=== PATIENT | male | born 1945 | race Hispanic/Latino ===

== ENCOUNTER → 2018-01-05 | Day surgery (SDC) | payer MEDICARE, OTHER ==
[2018-01-03 12:23] LABS: BASOPHILS % 0.3 % (0.0-1.0); EOSINOPHILS # (AUTO) 0.1 (0.0-0.4); EOSINOPHILS % 1.7 % (0.0-6.0); HEMATOCRIT 42.5 % (38.2-49.6); HEMOGLOBIN 14.4 g/dL (14.0-18.0); LYMPHOCYTES # (AUTO) 1.4 (1.0-3.2); LYMPHOCYTES % 23.1 % (18.0-39.1); MEAN CORPUSCULAR HEMOGLOBIN 30.3 pg (28-32); MEAN CORPUSCULAR HGB CONC 33.9 g/dL (31-35); MEAN CORPUSCULAR VOLUME 89.5 fL (81-99); MONOCYTES # (AUTO) 0.5 (0.2-0.8); MONOCYTES % 8.6 % (4.4-11.3); NEUTROPHILS % 65.6 % (38.7-80.0); PLATELET COUNT 265 x10e3/uL (140-360); RED BLOOD COUNT 4.75 x10e6/uL (4.3-5.7); RED CELL DISTRIBUTION WIDTH 12.7 % (11.7-14.4)
[2018-01-03 12:44] LABS: ANION GAP 13.3 mmol/L (8-16); BLOOD UREA NITROGEN 13 mg/dL (7-26); BUN/CREATININE RATIO 16 (6-25); CALCIUM 9.6 mg/dL (8.4-10.2); CARBON DIOXIDE 24 mmol/L (22-29); CHLORIDE 107 mmol/L (98-107); CREATININE, SERUM 0.81 mg/dL (0.72-1.25); EST GLOMERULAR FILTRATION RATE > 60 ML/MIN (60-); GLUCOSE 146 mg/dL (74-118); POTASSIUM 4.3 mmol/L (3.5-5.1); SODIUM 140 mmol/L (136-145)
--- NOTE | 2018-01-03 12:59 | Diagnostic Imaging Report ---
PROCEDURE:CHEST 2 VIEWS TECHNIQUE:PA and lateral chest INDICATION:Preoperative evaluation COMPARISON:None. FINDINGS: The lungs are clear and symmetrically inflated. No pleural effusions. Normal heart size, mediastinal contour and pulmonary vasculature. Postoperative sequela sternotomy/CABG. Intact skeleton. CONCLUSION: No acute abnormality. Dictated by: Jimmy Hdez M.D. on 01/03/2018 at 13:01 Electronically approved by: Jimmy Hdez M.D. on 01/03/2018 at 13:01
[~2018-01-05] MED LIST: AMLODIPINE BESY10 MG PO; ASPIRIN81 MG; ATORVASTATIN CA20 MG PO; CARVEDILOL3.125 MG PO; CEFTRIAXONE SOD 1 GM VIAL ONE; CINNAMON500 MG; EFFIENT10 MG PO; FENTANYL CITRATE/PF 100MCG/2 ML INJ ONE; HUMULIN R100 UNIT/2; JANUMET 50-1,01 EACH; KETOROLAC60 MG/2 ML OP; LIDOCAINE JELLY 2% 10ML URO-JET ONE; LOSARTAN POTASS25 MG; MIDAZOLAM HCL 2 MG/2 ML VIAL ONE; NITROGLYCERIN0.4 MG SL; ONDANSETRON HCL INJ 2 MG/ML VIAL ONE; PROPOFOL IV EMULSION 10 MG/ML 20 ML VIAL ONE; RANEXA500 MG PO; SERTRALINE HCL50 MG PO; VITAMIN D250000 UNIT
--- OUTSIDE RECORDS SUMMARY | 2018-01-05 07:27 | XMS REPORT ---
Author [facility] Address Unknown Phone Unavailable Care Team Providers Care Senior It Specialist Name Role Phone EL PHAN Unavailable Unavailable Problems This patient has no known problems. Allergies, Adverse Reactions, Alerts This patient has no known allergies or adverse reactions. Medications This patient has no known medications. Results Test Description Test Time Test Comments Text Results Atomic Results Result Comments CHEST 2 VIEWS [place] [address] Patient Name: JOSE JAVIER MR #: [id number] : 1945 Age/Sex: 72/M Req # : [id number] Adm Physician: Ordered by: KOURTNEY LOWERY MD Report #: [id number] Location: OR Room/Bed: Procedure: [id number] DX/CHEST 2 VIEWS Exam Date: 01/03/18 Exam Time: 1230 REPORT STATUS: Signed PROCEDURE: CHEST 2 VIEWS TECHNIQUE: PA and lateral chest INDICATION: Preoperative evaluation COMPARISON: None. FINDINGS: The lungs are clear and symmetrically inflated. No pleural effusions. Normal heart size, mediastinal contour and pulmonary vasculature. Postoperative sequela sternotomy/CABG. Intact skeleton. CONCLUSION: No acute abnormality. Dictated by: Lorena Hdez M.D. on 01/03/2018 at 13:01 Electronically approved by: Lorena Hdez M.D. on 01/03/2018 at 13:01 Dictated By: LORENA HDEZ MD [id number] Transcribed By: SYDNEE on 01/03/18 1301 COPY TO: KOURTNEY LOWERY MD
--- OUTSIDE RECORDS SUMMARY | 2018-01-05 07:27 | XMS REPORT ---
Author Author Admin, [place] Organization [facility] Address Unknown Phone Unavailable Allergies, Adverse Reactions, Alerts Allergy Name Reaction Description Start Date Severity Status Provider Allergies Unknown Conditions or Problems Problem Name Problem Code Onset Date Status Entry Date Provider Comment Standard Description Annotate Depression, major 296.20 Active Selena NUNEZP Major depressive disorder, single episode, unspecified degree Diabetes mellitus, type II 250.00 Active Selena NUNEZP Diabetes mellitus without mention of complication, type II or unspecified type, not stated as uncontrolled Dyslipidemia 272.4 Active Selena NUNEZP Other and unspecified hyperlipidemia Hypertension, benign essential 401.1 Active Selena NUNEZP Benign essential hypertension Insomnia 780.52 Active Selena NUNEZP Insomnia, unspecified Obesity Active Selena NUNEZP Obesity, unspecified Physical exam, routine V70.0 Inactive Selena MALDONADO Routine general medical examination at a health care facility Physical exam, routine ICD-V70.0 Inactive Selena NUNEZP Medication List Medication Instructions Start Date Stop Date Generic Name NDC Status Provider Patient Instruction ONETOUCH LANCETS check twice daily LANCETS 55452424296 Active Selena NUNEZP Active ONETOUCH ULTRA BLUE IN VITRO STRIP Use to test blood sugars Twice a Day 12/15 GLUCOSE BLOOD 26870496698 Active Katerina Landry PROMOS EXECUTIVE PRODUCER Active AMLODIPINE BESYLATE 10 MG ORAL TABLET 1 tab by mouth daily AMLODIPINE BESYLATE 92557038090 Active Selena NUNEZP Active ASPIRIN 81 MG ORAL TABLET DELAYED RELEASE 1 by mouth every day ASPIRIN 07219537494 Active Selena NUNEZP Active ATORVASTATIN CALCIUM 40 MG ORAL TABLET 1 tablet by mouth at bedtime ATORVASTATIN CALCIUM 02101609863 Active Selena NUNEZP Active CARVEDILOL 6.25 MG ORAL TABLET 1 tab by mouth once a day CARVEDILOL 57777429944 Active Selena NUNEZP Active CINNAMON 500 MG ORAL CAPSULE 2 tablets by mouth twice daily CINNAMON 93765123618 Active Selena NUNEZP Active [facility] MELATONIN 10 MG ORAL CAPSULE 3 tablets by mouth at bedtime MELATONIN 17103214741 Active Selena NUNEZP Active HUMULIN R 100 UNIT/ML INJECTION SOLUTION 3 units SC as needed INSULIN REGULAR HUMAN 82287885426 Active Selena NUNEZP Active JANUMET 50-1000 MG ORAL TABLET 1 tablet by mouth twice daily SITAGLIPTIN-METFORMIN HCL 24852645137 Active Selena NUNEZP Active LOSARTAN POTASSIUM 25 MG ORAL TABLET 1 tablet by mouth daily LOSARTAN POTASSIUM 93632858896 Active Selena NUNEZP Active NITROSTAT 0.4 MG SUBLINGUAL TABLET SUBLINGUAL 1 SL every 5 min as needed for chest pain, max 3 doses per episode NITROGLYCERIN 95706081323 Active Selena NUNEZP Active PRASUGREL HCL 10 MG ORAL TABLET 1 tablet by mouth daily PRASUGREL HCL 79066483959 Active Selena NUNEZP Active RANEXA 1000 MG ORAL TABLET EXTENDED RELEASE 12 HOUR 1 tablet by mouth twice daily RANOLAZINE 27707132173 Active Selena NUNEZP Active SERTRALINE HCL 50 MG ORAL TABLET 1/2 tablet by mouth at bedtime daily SERTRALINE HCL 51995328524 Active Selena NUNEZP Active VITAMIN D (ERGOCALCIFEROL) 83804 UNIT ORAL CAPSULE One capsule by mouth once per week for 12 weeks ERGOCALCIFEROL 32940502025 Active Selena NUNEZP Active Vital Signs Date Name Value Unit Range Description blood pressure, diastolic 93 mm[Hg] BP aguiar blood pressure, systolic 156 mm[Hg] BP sys height E&M 63.50 [in_us] Bdy height pulse rate E&M 58 /min Heart rate respiratory rate E&M 21 /min Resp rate temperature E&M 98.5 [degF] Body temperature weight E&M 181.80 [lb_av] Weight Measured Diagnostic Results Date Name Value Unit Range Description Office Visit: Acute Visit uti/htn/diabetes rm 6 [facility]e - Urinalysis pH, urine, semiquantitative 5.0 Lab Report: CBC With Differential/Platelet, Comp. Metabolic Panel (14), ... - Hematology lymphocyte count, blood, automated 1.5 X10E3/UL 10*3/mm3 0.7- 3.1 Office Visit: Acute Visit uti/htn/diabetes rm 6 [facility] Jaye - Urinalysis bilirubin, urine negative Lab Report: CBC With Differential/Platelet, Comp. Metabolic Panel (14), ... - Chemistry urea nitrogen, blood 11 mg/dL 8-27 creatinine, serum 0.86 mg/dL 0.76-1.27 chloride, serum 102 mmol/L 96-106 Lab Report: CBC With Differential/Platelet, Comp. Metabolic Panel (14), ... - Hematology mean corpuscular volume, RBC 92 fL 79-97 Lab Report: CBC With Differential/Platelet, Comp. Metabolic Panel (14), ... - Chemistry triglyceride, serum, fasting 123 mg/dL 0-149 Lab Report: CBC With Differential/Platelet, Comp. Metabolic Panel (14), ... - Hematology erythrocyte (RBC) count 4.56 X10E6/UL 10*6/mm3 4.14-5.80 Lab Report: CBC With Differential/Platelet, Comp. Metabolic Panel (14), ... - Chemistry Estimated Glomerular Filtration Rate (calc) 87 mL/min/1.73m2 > 59 Office Visit: Acute Visit uti/htn/diabetes rm 6 [facility] Jaye - Urinalysis appearance, urine clear Lab Report: CBC With Differential/Platelet, Comp. Metabolic Panel (14), ... - Hematology platelet count 262 X10E3/UL 10*3/mm3 077-533 7699/05/10 red blood cell distribution width 14.2 % 12.3-15.4 Lab Report: CBC With Differential/Platelet, Comp. Metabolic Panel (14), ... - Chemistry protein, total, serum 7.1 g/dL 6.0-8.5 HDL cholesterol, serum 37 mg/dL >39 Office Visit: Acute Visit uti/htn/diabetes rm 6 [facility] Jaye - Urinalysis glucose, urine, semiquantitative negative Lab Report: CBC With Differential/Platelet, Comp. Metabolic Panel (14), ... - Chemistry albumin/globulin ratio, serum 2.0 1.2-2.2 Lab Report: CBC With Differential/Platelet, Comp. Metabolic Panel (14), ... - Hematology eosinophils as percent of blood leukocytes 1 % Not Estab. Lab Report: CBC With Differential/Platelet, Comp. Metabolic Panel (14), ... - Chemistry Absolute Neutrophils 3.9 X10E3/UL 10*3/uL 1.4-7.0 Lab Report: CBC With Differential/Platelet, Comp. Metabolic Panel (14), ... - Hematology basophil count, absolute 0.0 x10E3/uL 0.0-0.2 Lab Report: CBC With Differential/Platelet, Comp. Metabolic Panel (14), ... - Chemistry alanine aminotransferase (SGPT), serum 16 U/L 0-44 LDL cholesterol, serum 74 mg/dL 0-99 Office Visit: Acute Visit uti/htn/diabetes 6 [facility]e - Urinalysis nitrite, urine, semiquantitative negative Lab Report: CBC With Differential/Platelet, Comp. Metabolic Panel (14), ... - Hematology monocytes as percent of blood leukocytes 8 % Not Estab. Lab Report: Albumin/Creatinine Ratio,Urine, Chlamydia/GC Amplification, ... - Urinalysis urine culture LESS Lab Report: CBC With Differential/Platelet, Comp. Metabolic Panel (14), ... - Chemistry cholesterol, serum 136 mg/dL 100-199 Lab Report: CBC With Differential/Platelet, Comp. Metabolic Panel (14), ... - Hematology mean corpuscular hemoglobin concentration, RBC 34.0 G/DL % 31.5- 35.7 Office Visit: Acute Visit uti/htn/diabetes 6 [facility] - Urinalysis leukocyte esterase, urine, by dipstick negative Lab Report: CBC With Differential/Platelet, Comp. Metabolic Panel (14), ... - Hematology hemoglobin, blood 14.3 g/dL 13.0-17.7 leukocyte count, blood 6.0 X10E3/UL 10*3/mm3 3.4-10.8 Office Visit: Acute Visit uti/htn/diabetes 6 [facility] - Urinalysis protein, urine, semiquantitative (dipstick) negative Lab Report: CBC With Differential/Platelet, Comp. Metabolic Panel (14), ... - Hematology hematocrit, blood 42.1 % 37.5-51.0 Lab Report: CBC With Differential/Platelet, Comp. Metabolic Panel (14), ... - Chemistry prostate specific antigen 2.6 ng/mL 0.0-4.0 globulin, serum 2.4 1.5-4.5 albumin, serum 4.7 g/dL 3.5-4.8 very low density lipoproteins 25 mg/dL 5-40 Office Visit: Acute Visit uti/htn/diabetes 6 [facility] - Urinalysis urobilinogen, urine, semiquantitative (dipstick) negative Lab Report: CBC With Differential/Platelet, Comp. Metabolic Panel (14), ... - Chemistry calcium, serum 9.6 mg/dL 8.6-10.2 Lab Report: CBC With Differential/Platelet, Comp. Metabolic Panel (14), ... - Hematology basophils as percent of blood leukocytes 0 % Not Estab. Lab Report: Albumin/Creatinine Ratio,Urine, Chlamydia/GC Amplification, ... - Urinalysis microalbumin/total urine volume 3.1 mg/L Not Estab. Lab Report: CBC With Differential/Platelet, Comp. Metabolic Panel (14), ... - Hematology monocyte count, blood, automated 0.5 X10E3/UL 10*3/uL 0.1-0.9 Lab Report: CBC With Differential/Platelet, Comp. Metabolic Panel (14), ... - Chemistry immature granulocytes, percentage of total cells, blood 0 % Not Estab. urea nitrogen/creatinine ratio, serum 13 10-24 Lab Report: CBC With Differential/Platelet, Comp. Metabolic Panel (14), ... - Genetics/fertility eGFR if 100 mL/min/1.73m2 >59 Lab Report: CBC With Differential/Platelet, Comp. Metabolic Panel (14), ... - Hematology lymphocytes as percent of blood leukocytes 25 % Not Estab. Lab Report: CBC With Differential/Platelet, Comp. Metabolic Panel (14), ... - Chemistry carbon dioxide, venous blood 24 mmol/L 18-29 Lab Report: CBC With Differential/Platelet, Comp. Metabolic Panel (14), ... - Serology rapid plasma reagin antibody, serum Non Reactive Non Reactive Lab Report: Albumin/Creatinine Ratio,Urine, Chlamydia/GC Amplification, ... - Lab chlamydia DNA probe Negative Negative Lab Report: Albumin/Creatinine Ratio,Urine, Chlamydia/GC Amplification, ... - Microbiology Neisseria gonorrhoeae DNA probe Negative Negative Lab Report: CBC With Differential/Platelet, Comp. Metabolic Panel (14), ... - Chemistry sodium, serum 141 mmol/L 435-495 8872/05/10 hemoglobin A1C, blood, as % of total hemoglobin 6.9 % 4.8-5.6 alkaline phosphatase, serum 76 U/L 39-117 Office Visit: Acute Visit uti/htn/diabetes rm 6 [facility]e - Urinalysis ketones, urine, by test strip negative Lab Report: CBC With Differential/Platelet, Comp. Metabolic Panel (14), ... - Hematology Eosinophil Absolute Count 0.1 X10E3/UL 10*3/uL 0.0-0.4 Office Visit: Acute Visit uti/htn/diabetes rm 6 [facility] - Urinalysis specific gravity, urine 1.015 Lab Report: CBC With Differential/Platelet, Comp. Metabolic Panel (14), ... - Hematology mean corpuscular hemoglobin, RBC 31.4 pg 26.6-33.0 Lab Report: CBC With Differential/Platelet, Comp. Metabolic Panel (14), ... - Chemistry bilirubin, serum, total 1.0 mg/dL 0.0-1.2 Lab Report: Albumin/Creatinine Ratio,Urine, Chlamydia/GC Amplification, ... - Chemistry creatinine, random, urine 75.0 mg/dL Not Estab. Lab Report: CBC With Differential/Platelet, Comp. Metabolic Panel (14), ... - Hematology neutrophils as percent of blood leukocytes 66 % Not Estab. Office Visit: Acute Visit uti/htn/diabetes rm 6 ERICA Cee - Urinalysis blood in urine (hemoglobin) by dipstick negative Lab Report: CBC With Differential/Platelet, Comp. Metabolic Panel (14), ... - Chemistry blood glucose, random 153 mg/dL 65-99 potassium, serum 4.5 mmol/L 3.5-5.2 aspartate aminotransferase (SGOT), serum 12 U/L 0-40 Office Visit: Acute Visit uti/htn/diabetes rm 6 ERICA Cee - Urinalysis urine color yellow Encounters Date Encounter Provider Code Facility 14:47:51 CDT New Patient Detailed - [id number] Selena Cee [facility] CPT- 89573 [facility] Procedures Code Procedure Name Date Entry Date Standard Description CPT-99874 Urinalysis - Dip only - In House 14:47:54 CDT
--- NOTE | 2018-01-12 10:56 | Operative Report ---
DATE OF PROCEDURE: January 05, 2018 PREOPERATIVE DIAGNOSIS: Bladder pain. POSTOPERATIVE DIAGNOSES 1. Bladder pain. 2. Urethral stricture disease. OPERATIVE PROCEDURES PERFORMED 1. Cystoscopy. 2. Direct visual internal urethrotomy. ANESTHESIA: General. ESTIMATED BLOOD LOSS: Minimal. INDICATIONS: Mr. Alexis Dickey is a 72-year-old gentleman with a history of dysuria and recurrent bladder pain of unclear etiology. He now presents for potential diagnosis and management of his problem. PROCEDURE IN DETAIL: The patient was brought into the operating room and placed in the supine position. After administration of general anesthesia, was placed in the dorsal lithotomy position, and prepped and draped in the usual sterile fashion. Cystourethroscopy was performed first using a 21-Malawian cystoscope. The anterior and posterior urethra revealed multiple proximal bulbar strictures. The most proximal one being approximately 1 cm distal to the sphincter. This was too tight to allow passage of the scope. The optical urethrotome was used. A cold knife was then used to incise the stricture at the 12 o'clock position. This allowed passage of the sphincter without difficulty. The prostate revealed evidence of trilobar hyperplasia with significant elevation of the median bar. The bladder was entered with mild difficulty. Upon entrance into the bladder, there were grade 2-3 trabeculations noted throughout. The bladder mucosa was otherwise unremarkable. The ureteral orifices were in their normal anatomical position and produced clear efflux. A 0.038 wire was then placed into the bladder through the optical urethrotome under direct visualization, and the urethrotome was removed. A 20-Mal[place]ian Venetie Ira-tipped catheter was then placed over the wire into the bladder, and the balloon inflated with 10 mL of sterile water. This was placed to gravity drainage. The ureter efflux was noted to be blood-tinged. The patient was returned to the supine position and anesthesia was reversed. He was transferred to a bed, and taken to the postanesthesia care unit in good condition. Of note, the needle and instrument count were correct at the conclusion of the case. Job#: [id number] CT
== END | disposition home or self-care (01) ==
LOC: OR 07:25
PROVIDERS: ATTEND Urology
DX: N35.9 Urethral stricture, unspecified (principal); N32.89 Other specified disorders of bladder; N40.0 Benign prostatic hyperplasia without lower urinary tract symptoms; G47.30 Sleep apnea, unspecified; I25.810 Atherosclerosis of coronary artery bypass graft(s) without angina pectoris; I10 Essential (primary) hypertension; E78.5 Hyperlipidemia, unspecified; I25.2 Old myocardial infarction; R00.1 Bradycardia, unspecified; E11.9 Type 2 diabetes mellitus without complications; F32.9 Major depressive disorder, single episode, unspecified; F17.210 Nicotine dependence, cigarettes, uncomplicated; Z91.041 Radiographic dye allergy status; Z79.4 Long term (current) use of insulin; Z79.82 Long term (current) use of aspirin; Z68.31 Body mass index [BMI] 31.0-31.9, adult; Z95.1 Presence of aortocoronary bypass graft; Z95.5 Presence of coronary angioplasty implant and graft
CPT/HCPCS: 36415; 52276; 71046; 80048; 85025; 93005; J0696; J2250; J2405

== ENCOUNTER 2018-05-25 10:48 | Emergency (ER) | payer MEDICARE, OTHER ==
[~2018-05-25] VITALS: Ht 165.1 cm; Wt 88.5 kg
[~2018-05-25 10:48] MED LIST changes: -CEFTRIAXONE SOD 1 GM VIAL ONE; -FENTANYL CITRATE/PF 100MCG/2 ML INJ ONE; -LIDOCAINE JELLY 2% 10ML URO-JET ONE; -MIDAZOLAM HCL 2 MG/2 ML VIAL ONE; -ONDANSETRON HCL INJ 2 MG/ML VIAL ONE; -PROPOFOL IV EMULSION 10 MG/ML 20 ML VIAL ONE
--- OUTSIDE RECORDS SUMMARY | 2018-05-25 10:59 | XMS REPORT ---
Author Author [facility] Address Unknown Phone Unavailable Care Team Providers Care Supervisor Receiving And Processing Name Role Phone JOSE MATHEWS Unavailable Unavailable Problems This patient has no known problems. Allergies, Adverse Reactions, Alerts This patient has no known allergies or adverse reactions. Medications This patient has no known medications. Results Test Description Test Time Test Comments Text Results Atomic Results Result Comments HEMOGLOBIN A1C 2018-04-04 10:52:00 HEMOGLOBIN A1C ([employer]) (test paxa=105) 6.7 % 4.3-6.1 [id number] 09:56:00* Test Item Value Reference Range Comments D-DIMER QUANTITATIVE ([employer]) (test onsq=950) < MG/L FEU <0.50 Intended Use: The D-Dimer Assay can be used to aid in the diagnosis of Deep Vein Thrombosis (DVT) and Pulmonary Embolism Disease (PED).In patients with low pre- test probability, various studies concerning STA Liatest D-dimer test have repor emily that with a cutoff value of 0.50 MG/L FEU, the Negative Predictive Value (EMB[employer]ING [employer] V) regarding the exclusion of thrombosis is within 95-100% range.POCT-GLUCOSE [id number] 07:54:00* Test Item Value Reference Range Comments POC-GLUCOSE METER ([employer]) (test rtfx=3661) 135 mg/dL 70-110 TESTED AT [address] [address] TROPONIN [id number] 04:40:00* Test Item Value Reference Range Comments TROPONIN I ([employer]) (test zuyu=089) 0.02 ng/mL 0.00-0.03 Troponin I (TnI) levels must be interpreted in the context of the presenting sym ptoms and the clinical findings. Elevated TnI levels indicate myocardial damage, but are not specific for ischemic heart disease. Elevated TnI levels are seen in patients with other cardiac conditions (including myocarditis and congestive h eart failure), and slight TnI elevations occur in patients with other conditions , including sepsis, renal failure, acidosis, acute neurological disease, and per sistent tachyarrhythmia.[id number] 04:35:00* Test Item Value Reference Range Comments MAGNESIUM (BEAKER) (test rphz=533) 2.0 mg/dL 1.6-2.6 BASIC METABOLIC [id number] 04:35:00* Test Item Value Reference Range Comments SODIUM (BEAKER) (test oxdq=548) 138 meq/L 136-145 POTASSIUM (BEAKER) (test kbkx=970) 4.0 meq/L 3.5-5.1 CHLORIDE (BEAKER) (test kmvf=510) 104 meq/L 98-107 CO2 (BEAKER) (test kgeb=343) 24 meq/L 22-29 BLOOD UREA NITROGEN (BEAKER) (test spji=845) 13 mg/dL 7-21 CREATININE (BEAKER) (test guqs=601) 0.82 mg/dL 0.57-1.25 GLUCOSE RANDOM (BEAKER) (test cwgr=181) 188 mg/dL 70-105 CALCIUM (BEAKER) (test sqzc=057) 9.8 mg/dL 8.4-10.2 EGFR (BEAKER) (test zkyu=8670) 92 mL/min/1.73 sq m ESTIMATED GFR IS NOT ACCURATE CREATININE CLEARANCE IN PREDICTING GLOMERULAR FILTRATION RATE. ESTIMATED GFR IS NOT APPLICABLE FOR DIALYSIS PATIENTS. LIPID [id number] 04:35:00* Test Item Value Reference Range Comments TRIGLYCERIDES (BEAKER) (test fbup=588) 197 mg/dL CHOLESTEROL (BEAKER) (test yfsb=798) 146 mg/dL HDL CHOLESTEROL (BEAKER) (test fixo=006) 33 mg/dL LDL CHOLESTEROL CALCULATED (BEAKER) (test zahc=933) 74 mg/dL Triglyceride Reference Range: Low Risk <150 Borderline 150-199 High Risk 200-499 Very High Risk >=500Cholesterol Reference Range: Low Risk <200 Borderline 200-239 High Risk >240HDL Cholesterol Reference Range: Low Risk >=60 High Risk <40LDL Cholesterol Reference Range: Optimal <100 Near Optimal 100-129 Borderline 130-159 High 160-189 Very High >=190 CBC (HEMOGRAM ONLY)2018-04-04 04:18:00* Test Item Value Reference Range Comments WHITE BLOOD CELL COUNT (BEAKER) (test deep=090) 6.0 K/ L 3.5-10.5 RED BLOOD CELL COUNT (BEAKER) (test scse=577) 4.30 M/ L 4.63-6.08 HEMOGLOBIN (BEAKER) (test ppuc=608) 12.6 GM/DL 13.7-17.5 HEMATOCRIT (BEAKER) (test kizr=843) 38.3 % 40.1-51.0 MEAN CORPUSCULAR VOLUME (BEAKER) (test jloo=803) 89.1 fL 79.0-92.2 MEAN CORPUSCULAR HEMOGLOBIN (BEAKER) (test lzzw=123) 29.3 pg 25.7-32.2 MEAN CORPUSCULAR HEMOGLOBIN CONC (BEAKER) (test syuz=287) 32.9 GM/DL 32.3-36.5 RED CELL DISTRIBUTION WIDTH (BEAKER) (test jzom=564) 14.6 % 11.6-14.4 PLATELET COUNT (BEAKER) (test sghj=304) 276 K/CU MM 150-450 MEAN PLATELET VOLUME (BEAKER) (test xmua=804) 9.5 fL 9.4-12.4 NUCLEATED RED BLOOD CELLS (BEAKER) (test ecnp=863) 0 /100 WBC 0-0 POCT-GLUCOSE [id number] 04:02:00* Test Item Value Reference Range Comments POC-GLUCOSE METER (BEAKER) (test rbsc=1811) 189 mg/dL 70-110 TESTED AT [facility] [address] [facility] [address] B-TYPE NATRIURETIC FACTOR (BNP)2018-04-03 19:24:00* Test Item Value Reference Range Comments B-TYPE NATRIURETIC PEPTIDE (BEAKER) (test ssoo=650) 67 pg/mL 0-100 TROPONIN [id number] 19:24:00* Test Item Value Reference Range Comments TROPONIN I (BEAKER) (test zjec=574) < ng/mL 0.00-0.03 Troponin I (TnI) levels must be interpreted in the context of the presenting sym ptoms and the clinical findings. Elevated TnI levels indicate myocardial damage, but are not specific for ischemic heart disease. Elevated TnI levels are seen in patients with other cardiac conditions (including myocarditis and congestive h eart failure), and slight TnI elevations occur in patients with other conditions , including sepsis, renal failure, acidosis, acute neurological disease, and per sistent tachyarrhythmia.RAD, CHEST, 2 [id number] 19:21:00Reason for exam:-> SHORTNESS OF BREATHReason for exam:->FATIGUEFINAL REPORT Chest 2 views 04/03/2018 7:21 PM CLINICAL HISTORY: SHORTNESS OF BREATHFATIGUE COMPARISON: None available FINDINGS: The lungs are clear. Cardiomediastinal contours are within normal limits. The central pulmonary vasculature is not engorged. There are changes of median sternotomy.The visualized skeleton is intact. IMPRESSION: No acute radiographic abnormalities. Signed: Jonas Pedersen Verified Date/Time: 04/03/2018 19:21:18 Reading Location: [facility] Reading Room [id number] 19:16:00* Test Item Value Reference Range Comments MAGNESIUM (BEAKER) (test rejl=564) 1.9 mg/dL 1.6-2.6 BASIC METABOLIC [id number] 19:16:00* Test Item Value Reference Range Comments SODIUM (BEAKER) (test difl=574) 137 meq/L 136-145 POTASSIUM (BEAKER) (test wimp=425) 4.3 meq/L 3.5-5.1 CHLORIDE (BEAKER) (test vrjs=148) 100 meq/L 98-107 CO2 (BEAKER) (test gbcy=138) 28 meq/L 22-29 BLOOD UREA NITROGEN (BEAKER) (test mcjj=312) 14 mg/dL 7-21 CREATININE (BEAKER) (test ryfo=944) 0.86 mg/dL 0.57-1.25 GLUCOSE RANDOM (BEAKER) (test axiz=552) 117 mg/dL 70-105 CALCIUM (BEAKER) (test emlf=741) 10.1 mg/dL 8.4-10.2 EGFR (BEAKER) (test ruij=3436) 87 mL/min/1.73 sq m ESTIMATED GFR IS NOT ACCURATE CREATININE CLEARANCE IN PREDICTING GLOMERULAR FILTRATION RATE. ESTIMATED GFR IS NOT APPLICABLE FOR DIALYSIS PATIENTS. PT/[id number] 19:14:00* Test Item Value Reference Range Comments PROTIME (BEAKER) (test wzpc=724) 13.8 seconds 11.7-14.7 INR (BEAKER) (test jebn=900) 1.1 <=5.9 PARTIAL THROMBOPLASTIN TIME (BEAKER) (test ceng=434) 24.1 seconds 22.5-36.0 RECOMMENDED COUMADIN/WARFARIN INR THERAPY RANGESSTANDARD DOSE: 2.0 - 3.0 Inclu theodore: PROPHYLAXIS for venous thrombosis, systemic embolization; TREATMENT for emmanuel ous thrombosis and/or pulmonary embolus.HIGH RISK: Target INR is 2.5-3.5 for pat ients with mechanical heart valves.CBC W/PLT COUNT & AUTO [id number] 19:02:00* Test Item Value Reference Range Comments WHITE BLOOD CELL COUNT (BEAKER) (test lfji=635) 6.2 K/ L 3.5-10.5 RED BLOOD CELL COUNT (BEAKER) (test bjur=693) 4.62 M/ L 4.63-6.08 HEMOGLOBIN (BEAKER) (test rmuh=645) 13.7 GM/DL 13.7-17.5 HEMATOCRIT (BEAKER) (test sxba=863) 41.9 % 40.1-51.0 MEAN CORPUSCULAR VOLUME (BEAKER) (test wamw=822) 90.7 fL 79.0-92.2 MEAN CORPUSCULAR HEMOGLOBIN (BEAKER) (test oisu=910) 29.7 pg 25.7-32.2 MEAN CORPUSCULAR HEMOGLOBIN CONC (BEAKER) (test shrl=772) 32.7 GM/DL 32.3-36.5 RED CELL DISTRIBUTION WIDTH (BEAKER) (test ajsf=216) 14.7 % 11.6-14.4 PLATELET COUNT (BEAKER) (test godo=526) 286 K/CU MM 150-450 MEAN PLATELET VOLUME (BEAKER) (test irod=852) 9.1 fL 9.4-12.4 NUCLEATED RED BLOOD CELLS (BEAKER) (test vfjr=253) 0 /100 WBC 0-0 NEUTROPHILS RELATIVE PERCENT (BEAKER) (test mton=575) 64 % LYMPHOCYTES RELATIVE PERCENT (BEAKER) (test doua=154) 26 % MONOCYTES RELATIVE PERCENT (BEAKER) (test bupi=119) 8 % EOSINOPHILS RELATIVE PERCENT (BEAKER) (test absd=870) 1 % BASOPHILS RELATIVE PERCENT (BEAKER) (test yjia=273) 1 % NEUTROPHILS ABSOLUTE COUNT (BEAKER) (test kzdl=604) 4.00 K/ L 1.78-5.38 LYMPHOCYTES ABSOLUTE COUNT (BEAKER) (test kkqb=765) 1.59 K/ L 1.32-3.57 MONOCYTES ABSOLUTE COUNT (BEAKER) (test glmu=343) 0.51 K/ L 0.30-0.82 EOSINOPHILS ABSOLUTE COUNT (BEAKER) (test mqau=568) 0.06 K/ L 0.04-0.54 BASOPHILS ABSOLUTE COUNT (BEAKER) (test wfmd=100) 0.03 K/ L 0.01-0.08 IMMATURE GRANULOCYTES-RELATIVE PERCENT (BEAKER) (test gofl=4266) 1 % 0-1
--- OUTSIDE RECORDS SUMMARY | 2018-05-25 10:59 | XMS REPORT | Clinical Summary ---
Author Author GENNARO [facility] Address Unknown Phone Unavailable Care Team Providers Care Executive Wellness Programs Director Name Role Phone PCP Unavailable Allergies Active Allergy Reactions Severity Noted Date Comments Iodine And Iodide Rash Low 04/03/2018 Containing Products Current Medications Prescription Sig. Disp. Refills Start End Date Status Date amLODIPine (NORVASC) 10 Take 10 mg by mouth 12/15/19 Active MG tablet daily. 18 aspirin 81 MG EC tablet Take 81 mg by mouth 12/15/19 Active daily. 18 atorvastatin (LIPITOR) 40 Take 40 mg by mouth 12/15/19 Active MG tablet nightly. 18 carvedilol (COREG) 6.25 Take 6.25 mg by mouth 2 12/15/19 Active MG tablet (two) times daily. 18 clopidogrel (PLAVIX) 75 Take 75 mg by mouth Active mg tablet daily. insulin regular (HUMULIN 3 units SC as needed 12/15/19 Active R REGULAR U-100 INSULN) 18 100 unit/mL injection losartan (COZAAR) 25 MG Take 25 mg by mouth 12/15/19 Active tablet daily. 18 SITagliptin-metFORMIN Take 1 tablet by mouth 2 12/15/19 Active (JANUMET) 50-1,000 mg per (two) times daily. 18 tablet sertraline (ZOLOFT) 50 MG Take 25 mg by mouth 12/15/19 Active tablet nightly. 18 ranolazine (RANEXA) 1,000 Take 1 tablet by mouth 2 12/15/19 Active mg SR tablet (two) times daily. 18 Active Problems Problem Noted Date Dyspnea on exertion 04/04/2018 Coronary artery disease involving [place] coronary artery of [place] heart 04/04/2018 without angina pectoris Essential hypertension 04/04/2018 DM (diabetes mellitus) (HCC) 04/04/2018 Hyperlipidemia 04/04/2018 (aortic stenosis) 04/04/2018 Resolved Problems Problem Noted Date Resolved Date Chest pain with high risk of acute coronary syndrome 04/04/2018 04/04/2018 Encounters Date Type Specialty Care Team Description 04/03/2018 Emergency Cardiology Jimmy Maurer MD Chest pain with high risk - Jerica Hubbard of acute coronary 04/04/2018 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);Shortness of breath;Coronary artery disease involving [place] coronary artery of [place] heart without angina pectoris;Dyspnea on exertion;Essential hypertension after 05/24/2017 Social History Tobacco Use Types Packs/Day Years Used Date Never Smoker Smokeless Tobacco: Never Used Alcohol Use Drinks/Week oz/Week Comments No Sex Assigned at Date Recorded Not on file Last Filed Vital Signs Vital Sign Reading Time Taken Blood Pressure 178/81 04/04/2018 7:40 AM CDT Pulse 66 04/04/2018 9:34 AM CDT Temperature 36.4 C (97.6 F) 04/04/2018 7:40 AM CDT Respiratory Rate 18 04/04/2018 9:34 AM CDT Oxygen Saturation 97% 04/04/2018 9:34 AM CDT Inhaled Oxygen - - Concentration Weight 84.7 kg (186 lb 12.8 oz) 04/04/2018 3:20 AM CDT Height 165.1 cm (5' 5") 04/04/2018 3:20 AM CDT Body Mass Index 31.09 04/04/2018 3:20 AM CDT Plan of Treatment Not on file Results * RHYTHM STRIP - SCAN (04/05/2018 11:20 AM) * ECHOCARDIOGRAM REPORT - SCAN (04/04/2018 10:30 AM) * D-dimer (04/04/2018 9:14 AM) Component Value Ref Range D-Dimer, Quant <0.27 <0.50 MG/L FEU Specimen Performing Laboratory Blood - Arm, Right [address] [place] [address] Narrative Intended Use: The D-Dimer Assay can be used to aid in the diagnosis of Deep Vein Thrombosis (DVT) and Pulmonary Embolism Disease (PED). In patients with low pre-test probability, various studies concerning STA Liatest D-dimer test have reported that with a cutoff value of 0.50 MG/L FEU, the Negative Predictive Value (NPV) regarding the exclusion of thrombosis is within 95-100% range. * 2D Echo W/Doppler(CW/PW/Color) (04/04/2018 8:14 AM) Component Value Ref Range Ejection Fraction Specimen Performing Laboratory SLE ECHO HEARTLAB MKCKESSON CPACS Narrative Transthoracic Echocardiography Report (TTE) Demographics Patient NameLEAL YAYA,Date of Study04/04/2018 JOSE HARRIS Male Visit [id number] Unknown Room [id number] [facility] Jimmy Brown Physician JERICA HUBBARD Age 73 year(s)SonographerOscar STEVEN Castaneda Electric Clock Mechanic Edouard Benito Interpreting Leeann Aldana MD Physician Procedure Type of Study TTE procedure:2DECHO W DOPPLER(CW/PW/COLOR) (STAT) Indications:Shortness of breath. Clinical History CABG, DIABETES, HTN, OBESITY HGB 12.6 HCT 38.3 % Contrast Medium: Definity. Amount - 2 ml Height: 65 inches Weight: 84.37 kg (186 lbs) BSA: 1.92 m^2 BMI: 30.95 kg/m^2 HR: 64 bpm BP: 159/75 mmHg Summary 1. The left ventricle is chamber size (by PSLAX dimension) is normal (male - LVIDd 4.2-5.8cm) . Mild LVH noted. Good endocardial definition with use of IV echo contrast. All of the LV segments contract normally . Estimated LVEF by qualitative assessment is normal (55-60%) . Grade 1 diastolic dysfunction (impaired relaxation and low-normal LA pressure). 2. Normal right ventricle structure and function. S' 15 cm/sec. 3. LA size is mildly enlarged . Normal right atrium. 4. Mild AoV cusp thickening. Mild restriction in the opening of the aortic valve. Mild aortic stenosis with mean gradient of 15 mm Hg, CARMELA of 1.4 cm^2 in the setting of LVOT stroke volume index of 41 cc/m^2. 5. A trace of tricuspid regurgitation. Incomplete TR jet. The estimated peak systolic PA pressure is at least 25-30 mmHg . The estimated RA pressure by IVC dynamics 0-5mmHg . 6. No evidence of pericardial effusion. Previous Study No prior exam available for comparison. Signature Findings Left Ventricle The left ventricle is chamber size (by PSLAX dimension) is normal (male - LVIDd 4.2-5.8cm) . Mild LVH noted. Good endocardial definition with use of IV Definity contrast. All of the LV segments contract normally . Estimated LVEF by qualitative assessment is normal (55-60%) . Grade 1 diastolic dysfunction (impaired relaxation and low-normal LA pressure). Left AtriumLA size is mildly enlarged . Right VentricleNormal right ventricle structure and function. S' 15 cm/sec. Right Atrium Normal right atrium. Aortic Valve Mild AoV cusp thickening. Mild restriction in the opening of the aortic valve. Mild aortic stenosis with mean gradient of 9 mm Hg, CARMELA of 1.4 cm^2 in the setting of LVOT stroke volume index of 41 cc/m^2. Mitral Valve Normal MV structure. Trace MR. Tricuspid ValveA trace of tricuspid regurgitation. Incomplete TR jet. The estimated peak systolic PA pressure is at least 25-30 mmHg . Pulmonic Valve Normal PV structure and function by limited views and Doppler. AortaAortic root size (SInus of Valsalva diameter) is normal . PericardiumNo evidence of pericardial effusion. IVC/SVC/PA/PV/PleuralThe estimated RA pressure by IVC dynamics 0-5mmHg . Chambers/Structures Left Atrium LA Dimension: 4.75 cm LA Area: 22.6 cm^2 LA Volume: 72.16 ml LA Vol. Index: 38 ml/m^2 Left Ventricle LVIDd: 5.19 cm LV Septum Diastolic: 1.2 cm LV PW Diastolic: 1.2 cm LVOT Diameter: 2 cm Right Ventricle RV Systolic Pressure: 26.16 mmHg TAPSE: 1.2 cm Aorta Ao Root S of Lillian.: 3.16 cm Doppler/Quantitative Measurements Mitral Valve MV Peak E-Wave: 0.74 m/s MV Peak A-Wave: 0.84 m/s E/A Ratio: 0.88 Peak Gradient: 2.2 mmHg Deceleration Time: 203 msec MV Juvenal. Peak: Tissue Doppler E' Lateral Velocity: 0.09 m/sA' Lateral Velocity: 0.1 m/s E/E': 7.85 Aortic Valve Peak Velocity: 2.66 m/s Mean Velocity: 1.45 m/s Peak Gradient: 28.3 mmHgMean Gradient: 15 mmHg AV Area (continuity): 1.38 cm^2 AV VTI: 57.9 cm AV DVI: 0.44 LVOT Peak Velocity: 1.27 m/s Peak Gradient: 6.43 mmHg Mean Velocity: 0.76 m/s Mean Gradient: 2.9 mmHg LVOT Diameter: 2 cm LVOT VTI: 25.47 cm LVOT Area: 3.14 cm^2LVOT SV:79.98 ml LVOT CO: 5.12 l/min LVOT CI: 2.67 l/min/m^2 Tricuspid Valve Estimated RAP: 5 mmHg TR Velocity: 2.3 m/s TR Gradient: 21.16 mmHg Pulmonic Valve Estimated PASP: 26.16 mmHg Procedure Note Interface, External Ris In - 04/04/2018 9:49 AM CDT Transthoracic Echocardiography Report (TTE) Demographics Patient Name CHRISTIAN JAVIER, Date of Study 04/04/2018 JOSE HARRIS Gender Male Visit Number [id number] Race Unknown Room Number C634 Number Date of 1945 Referring Erasto Brown Physician JERICA HUBBARD Age 73 year(s) Acetone Button Paster Matthew Castaneda [facility] Electric Clock Mechanic Edouard Aldana MD Physician Procedure Type of Study TTE procedure:2DECHO W DOPPLER(CW/PW/COLOR) (STAT) Indications:Shortness of breath. Clinical History CABG, DIABETES, HTN, OBESITY HGB 12.6 HCT 38.3 % Contrast Medium: Definity. Amount - 2 ml Height: 65 inches Weight: 84.37 kg (186 lbs) BSA: 1.92 m^2 BMI: 30.95 kg/m^2 HR: 64 bpm BP: 159/75 mmHg Summary 1. The left ventricle is chamber size (by PSLAX dimension) is normal (male - LVIDd 4.2-5.8cm) . Mild LVH noted. Good endocardial definition with use of IV echo contrast. All of the LV segments contract normally . Estimated LVEF by qualitative assessment is normal (55-60%) . Grade 1 diastolic dysfunction (impaired relaxation and low-normal LA pressure). 2. Normal right ventricle structure and function. S' 15 cm/sec. 3. LA size is mildly enlarged . Normal right atrium. 4. Mild AoV cusp thickening. Mild restriction in the opening of the aortic valve. Mild aortic stenosis with mean gradient of 15 mm Hg, CARMELA of 1.4 cm^2 in the setting of LVOT stroke volume index of 41 cc/m^2. 5. A trace of tricuspid regurgitation. Incomplete TR jet. The estimated peak systolic PA pressure is at least 25-30 mmHg . The estimated RA pressure by IVC dynamics 0-5mmHg . 6. No evidence of pericardial effusion. Previous Study No prior exam available for comparison. Signature Findings Left Ventricle The left ventricle is chamber size (by PSLAX dimension) is normal (male - LVIDd 4.2-5.8cm) . Mild LVH noted. Good endocardial definition with use of IV Definity contrast. All of the LV segments contract normally . Estimated LVEF by qualitative assessment is normal (55-60%) . Grade 1 diastolic dysfunction (impaired relaxation and low-normal LA pressure). Left Atrium LA size is mildly enlarged . Right Ventricle Normal right ventricle structure and function. S' 15 cm/sec. Right Atrium Normal right atrium. Aortic Valve Mild AoV cusp thickening. Mild restriction in the opening of the aortic valve. Mild aortic stenosis with mean gradient of 9 mm Hg, CARMELA of 1.4 cm^2 in the setting of LVOT stroke volume index of 41 cc/m^2. Mitral Valve Normal MV structure. Trace MR. Tricuspid Valve A trace of tricuspid regurgitation. Incomplete TR jet. The estimated peak systolic PA pressure is at least 25-30 mmHg . Pulmonic Valve Normal PV structure and function by limited views and Doppler. Aorta Aortic root size (SInus of Valsalva diameter) is normal . Pericardium No evidence of pericardial effusion. IVC/SVC/PA/PV/Pleural The estimated RA pressure by IVC dynamics 0-5mmHg . Chambers/Structures Left Atrium LA Dimension: 4.75 cm LA Area: 22.6 cm^2 LA Volume: 72.16 ml LA Vol. Index: 38 ml/m^2 Left Ventricle LVIDd: 5.19 cm LV Septum Diastolic: 1.2 cm LV PW Diastolic: 1.2 cm LVOT Diameter: 2 cm Right Ventricle RV Systolic Pressure: 26.16 mmHg TAPSE: 1.2 cm Aorta Ao Root S of Llilian.: 3.16 cm Doppler/Quantitative Measurements Mitral Valve MV Peak E-Wave: 0.74 m/s MV Peak A-Wave: 0.84 m/s E/A Ratio: 0.88 Peak Gradient: 2.2 mmHg Deceleration Time: 203 msec MV Juvenal. Peak: Tissue Doppler E' Lateral Velocity: 0.09 m/s A' Lateral Velocity: 0.1 m/s E/E': 7.85 Aortic Valve Peak Velocity: 2.66 m/s Mean Velocity: 1.45 m/s Peak Gradient: 28.3 mmHg Mean Gradient: 15 mmHg AV Area (continuity): 1.38 cm^2 AV VTI: 57.9 cm AV DVI: 0.44 LVOT Peak Velocity: 1.27 m/s Peak Gradient: 6.43 mmHg Mean Velocity: 0.76 m/s Mean Gradient: 2.9 mmHg LVOT Diameter: 2 cm LVOT VTI: 25.47 cm LVOT Area: 3.14 cm^2 LVOT SV:79.98 ml LVOT CO: 5.12 l/min LVOT CI: 2.67 l/min/m^2 Tricuspid Valve Estimated RAP: 5 mmHg TR Velocity: 2.3 m/s TR Gradient: 21.16 mmHg Pulmonic Valve Estimated PASP: 26.16 mmHg * POC-Glucose meter (04/04/2018 7:23 AM) Only the most recent of 2 results within the time period is included. Component Value Ref Range POC-Glucose Meter 135 (H)Comment: TESTED AT [address] 70 - 110 mg/dL [facility] [id number] Specimen Performing Laboratory Blood [address] [address] * Troponin I (04/04/2018 3:56 AM) Only the most recent of 2 results within the time period is included. Component Value Ref Range Troponin I 0.02 0.00 - 0.03 ng/mL Specimen Performing Laboratory Blood - Arm, Right [address] [address] Narrative Troponin I (TnI) levels must be interpreted in the context of the presenting symptoms and the clinical findings. Elevated TnI levels indicate myocardial damage, but are not specific for ischemic heart disease. Elevated TnI levels are seen in patients with other cardiac conditions (including myocarditis and congestive heart failure), and slight TnI elevations occur in patients with other conditions, including sepsis, renal failure, acidosis, acute neurological disease, and persistent tachyarrhythmia. * CBC (Hemogram only) (04/04/2018 3:56 AM) Component Value Ref Range WBC 6.0 3.5 - 10.5 K/L RBC 4.30 (L) 4.63 - 6.08 M/L Hemoglobin 12.6 (L) 13.7 - 17.5 GM/DL Hematocrit 38.3 (L) 40.1 - 51.0 % MCV 89.1 79.0 - 92.2 fL MCH 29.3 25.7 - 32.2 pg MCHC 32.9 32.3 - 36.5 GM/DL RDW 14.6 (H) 11.6 - 14.4 % Platelets 276 150 - 450 K/CU MM MPV 9.5 9.4 - 12.4 fL nRBC 0 0 - 0 /100 WBC Specimen Performing Laboratory Blood - Arm, [address] [address] * Magnesium (04/04/2018 3:56 AM) Only the most recent of 2 results within the time period is included. Component Value Ref Range Magnesium 2.0 1.6 - 2.6 mg/dL Specimen Performing Laboratory Blood - Arm, [address] [address] * Hemoglobin A1c (04/04/2018 3:56 AM) Component Value Ref Range Hemoglobin A1C 6.7 (H) 4.3 - 6.1 % Specimen Performing Laboratory Blood - Arm, [address] [address] * Lipid panel (04/04/2018 3:56 AM) Component Value Ref Range Triglycerides 197 mg/dL Cholesterol 146 mg/dL HDL 33 mg/dL LDL Calculated 74 mg/dL Specimen Performing Laboratory Blood - Arm, [address] [address] Narrative Triglyceride Reference Range: Low Risk <150 [id number] High Risk 200-499 Very High Risk>=500 Cholesterol Reference Range: Low Risk <200 [id number] High Risk>240 HDL Cholesterol Reference Range: Low Risk >=60 High Risk <40 LDL Cholesterol Reference Range: Optimal<100 Near [id number] [id number] Gudv559-376 Very High >=190 * Basic metabolic panel (04/04/2018 3:56 AM) Only the most recent of 2 results within the time period is included. Component Value Ref Range Sodium 138 136 - 145 meq/L Potassium 4.0 3.5 - 5.1 meq/L Chloride 104 98 - 107 meq/L CO2 24 22 - 29 meq/L BUN 13 7 - 21 mg/dL Creatinine 0.82 0.57 - 1.25 mg/dL Glucose 188 (H) 70 - 105 mg/dL Calcium 9.8 8.4 - 10.2 mg/dL EGFR 92Comment: ESTIMATED GFR IS NOT ACCURATE mL/min/1.73 sq m CREATININE CLEARANCE IN PREDICTING GLOMERULAR FILTRATION RATE. ESTIMATED GFR IS NOT APPLICABLE FOR DIALYSIS PATIENTS. Specimen Performing Laboratory Blood - Arm, [address] [address] * ECG 12 lead (04/04/2018 3:31 AM) Specimen Performing Laboratory GE MUSE Narrative Ventricular Rate 66 BPM Atrial Rate 66 BPM P-R Interval 142 ms QRS Duration 90 ms Q-T Interval 402 ms QTC Calculation(Bazett) 421 ms P Zoar 48 degrees R Zoar 81 degrees T Zo[place] 70 degrees Normal sinus rhythm Possible Inferior infarct (cited on or before 05-APR-2002) Minimal ST elevation in the inferior leads + ST depression in the lateral leads cannot exclude recent STEMI or aneurysm Abnormal ECG When compared with ECG of 05-APR-2002 03:45, Questionable change in QRS axis ST less elevated in theInferior leads ST no longer epevated in the precordial leads ST now depressed in Lateral leads Nonspecific T wave abnormality now seen anterior leads T wave inversion now evident in Lateral leads Confirmed by MD TIFFANIE, DEWEY ([id number]) on 04/04/2018 6:06:57 AM Procedure Note Interface, External Ris In - 04/04/2018 6:07 AM CDT Ventricular Rate 66 BPM Atrial Rate 66 BPM P-R Interval 142 ms QRS Duration 90 ms Q-T Interval 402 ms QTC Calculation(Bazett) 421 ms P Zo[place] 48 degrees R Zoar 81 degrees T Zo[place] 70 degrees Normal sinus rhythm Possible Inferior infarct (cited on or before 05-APR-2002) Minimal ST elevation in the inferior leads + ST depression in the lateral leads cannot exclude recent STEMI or aneurysm Abnormal ECG When compared with ECG of 05-APR-2002 03:45, Questionable change in QRS axis ST less elevated in the Inferior leads ST no longer epevated in the precordial leads ST now depressed in Lateral leads Nonspecific T wave abnormality now seen anterior leads T wave inversion now evident in Lateral leads Confirmed by MD TIFFANIE, DEWEY ([id number]) on 04/04/2018 6:06:57 AM * XR chest 2 views (04/03/2018 7:00 PM) Specimen Performing Laboratory GE RIS Narrative FINAL REPORT Chest 2 views 04/03/2018 7:21 PM CLINICAL HISTORY: SHORTNESS OF BREATH FATIGUE COMPARISON: None available FINDINGS: The lungs are clear. Cardiomediastinal contours are within normal limits. The central pulmonary vasculature is not engorged. There are changes of median sternotomy. The visualized skeleton is intact. IMPRESSION: No acute radiographic abnormalities. Signed: Jonas Stuart MD Report Verified Date/Time:04/03/2018 19:21:18 Reading Location: [facility] Radiology Reading Room Procedure Note Interface, External Ris In - 04/03/2018 7:23 PM CDT FINAL REPORT Chest 2 views 04/03/2018 7:21 PM CLINICAL HISTORY: SHORTNESS OF BREATH FATIGUE COMPARISON: None available FINDINGS: The lungs are clear. Cardiomediastinal contours are within normal limits. The central pulmonary vasculature is not engorged. There are changes of median sternotomy. The visualized skeleton is intact. IMPRESSION: No acute radiographic abnormalities. Signed: Jonas Stuart MD Report Verified Date/Time: 04/03/2018 19:21:18 Reading Location: [facility] Radiology Reading Room * PT/PTT (04/03/2018 6:48 PM) Component Value Ref Range Protime 13.8 11.7 - 14.7 seconds INR 1.1 <=5.9 PTT 24.1 22.5 - 36.0 seconds Specimen Performing Laboratory Blood - Arm, [place] [address] Narrative RECOMMENDED COUMADIN/WARFARIN INR THERAPY RANGES STANDARD DOSE: 2.0 - 3.0 Includes: PROPHYLAXIS for venous thrombosis, systemic embolization; TREATMENT for venous thrombosis and/or pulmonary embolus. HIGH RISK: Target INR is 2.5-3.5 for patients with mechanical heart valves. * CBC with platelet count + automated diff (04/03/2018 6:48 PM) Component Value Ref Range WBC 6.2 3.5 - 10.5 K/L RBC 4.62 (L) 4.63 - 6.08 M/L Hemoglobin 13.7 13.7 - 17.5 GM/DL Hematocrit 41.9 40.1 - 51.0 % MCV 90.7 79.0 - 92.2 fL MCH 29.7 25.7 - 32.2 pg MCHC 32.7 32.3 - 36.5 GM/DL RDW 14.7 (H) 11.6 - 14.4 % Platelets 286 150 - 450 K/CU MM MPV 9.1 (L) 9.4 - 12.4 fL nRBC 0 0 - 0 /100 WBC % Neutros 64 % % Lymphs 26 % % Monos 8 % % Eos 1 % % Baso 1 % # Neutros 4.00 1.78 - 5.38 K/L # Lymphs 1.59 1.32 - 3.57 K/L # Monos 0.51 0.30 - 0.82 K/L # Eos 0.06 0.04 - 0.54 K/L # Baso 0.03 0.01 - 0.08 K/L Immature 1 0 - 1 % Granulocytes-Relative Specimen Performing Laboratory Blood - Arm, [address] [address] * CBC with platelet count + automated diff (04/03/2018 6:48 PM) Specimen Performing Laboratory Blood Narrative The following orders were created for panel order CBC with platelet count + automated diff. Procedure Abnormality Status --------- ------ CBC with platelet count ...[[id number]]AbnormalFinal result Please view results for these tests on the individual orders. * B-type Natriuretic Factor (BNP) (04/03/2018 6:48 PM) Component Value Ref Range BNP 67 0 - 100 pg/mL Specimen Performing Laboratory Blood - Arm, [address] [address] after 05/24/2017
--- OUTSIDE RECORDS SUMMARY | 2018-05-25 10:59 | XMS REPORT | Clinical Summary ---
Author Author [facility] Address Unknown Phone Unavailable Care Team Providers Care Cash Sales Audit Clerk Name Role Phone Godfrey Collazo MD PCP Allergies Active Allergy Reactions Severity Noted Date Comments Iodinated Contrast- Oral Anaphylaxis High 04/13/2017 And Iv Dye Current Medications Prescription Sig. Disp. Refills Start End Date Status Date aspirin (ECOTRIN) 81 MG Take 81 mg by mouth Active enteric coated tablet daily. atorvastatin (LIPITOR) 40 Take 40 mg by mouth Active MG tablet daily. carvedilol (COREG) 6.25 Take 6.25 mg by mouth 2 Active MG tablet (two) times a day with meals. clopidogrel (PLAVIX) 75 Take 75 mg by mouth Active mg tablet daily. lisinopril Take 20 mg by mouth 2 Active (PRINIVIL,ZESTRIL) 20 mg (two) times a day. tablet dexlansoprazole Take 60 mg by mouth Active (DEXILANT) 60 mg capsule daily. sitaGLIPtin-metformin Take 1 tablet by mouth 2 Active (JANUMET XR) 50-1,000 mg (two) times a day. tablet, ER multiphase 24 hr insulin regular (HumuLIN Inject 3 Units under the Active R U-100) 100 unit/mL skin 3 (three) times a injection day before meals. Pt is on sliding scale Active Problems Problem Noted Date Chest pain 04/16/2017 Dizziness 04/13/2017 Hypertension 04/13/2017 Social History Tobacco Use Types Packs/Day Years Used Date Never Smoker Alcohol Use Drinks/Week oz/Week Comments No Sex Assigned at Date Recorded Not on file Last Filed Vital Signs Not on file Plan of Treatment Health Maintenance Due Date Last Done Comments COLON CANCER SCREENING 1995 SHINGRIX VACCINE (#1) 1995 ZOSTER VACCINE 2005 PNEUMOCOCCAL 2010 POLYSACCHARIDE VACCINE AGE 65 AND OVER PNEUMOCOCCAL-13 2010 INFLUENZA VACCINE 03/08/2018 Implants Implanted Type Area Haircutter Device Expiration Model / Identifier Date Serial / Lot Device Vasclr Clsr Baln Cath 10ml Cardiovasc N/A: N/A CARDINAL 02/04/2019 [id number] / Lkng Syr 6fr [facility] [id number] Implants [id number] Implanted: 04/19/2017 (Quantity not on file) Stent Cornorary Syst Synergy (Mr) Coronary N/A: N/A [facility] 11/29/2017 [id number] 2.50mm X 28mm - [id number] Stents INTERVENTIONAL 8250 / Implanted: 04/19/2017 (Quantity not CARDIOLOGY / on file) [id number] Stent Coronary Syst Synergy (Mr) Coronary N/A: N/A [facility] 01/19/2018 [id number] 3.00mm X 16mm - [id number] Stents INTERVENTIONAL 6300 / Implanted: 04/19/2017 (Quantity not CARDIOLOGY / on file) [id number] Results Not on fileafter 05/24/2017 Insurance Payer Benefit Subscriber ID Type Phone Address Plan / Group [facility] D[facility] xxxxxxxxx HMO COMPLETE [facility] [place] [address]
--- OUTSIDE RECORDS SUMMARY | 2018-05-25 11:00 | XMS REPORT ---
Author Author Admin, [place] Organization [facility] Address Unknown Phone Unavailable Allergies, Adverse Reactions, Alerts Allergy Name Reaction Description Start Date Severity Status Provider No Known Allergies Johana Goetz MA Conditions or Problems Problem Name Problem Code Onset Date Status Entry Date Provider Comment Standard Description Annotate Depression, major 296.20 Active Selena MALDONADO Major depressive disorder, single episode, unspecified degree Diabetes mellitus, type II 250.00 Active Selena MALDONADO Diabetes mellitus without mention of complication, type II or unspecified type, not stated as uncontrolled Dyslipidemia 272.4 Active Selena MALDONADO Other and unspecified hyperlipidemia Hypertension, benign essential 401.1 Active Selena MALDONADO Benign essential hypertension Insomnia 780.52 Active Selena MALDONADO Insomnia, unspecified Obesity Active Selena MALDONADO Obesity, unspecified Abdominal pain, lower ICD-789.09 Inactive Asha Villa MD Urinary frequency ICD-788.41 Inactive Asha Villa MD Physical exam, routine V70.0 Inactive Selena MALDONADO Routine general medical examination at a health care facility Physical exam, routine ICD-V70.0 Inactive Selena MALDONADO Abdominal pain, lower 789.09 Resolved Asha Villa MD Abdominal pain, other specified site; multiple sites Urinary frequency 788.41 Resolved Asha Villa MD Urinary frequency Medication List Medication Instructions Start Date Stop Date Generic Name NDC Status Provider Patient Instruction ONETOUCH LANCETS Use to check blood sugars Three Times a Day LANCETS 17959547653 Active Asha Villa MD Active ONETOUCH ULTRA BLUE IN VITRO STRIP Use to test blood sugars Three Times a Day GLUCOSE BLOOD 15262677407 Active Asha Villa MD Active AMLODIPINE BESYLATE 10 MG ORAL TABLET 1 tab by mouth daily AMLODIPINE BESYLATE 09808493173 Active Selena NUNEZP Active ASPIRIN 81 MG ORAL TABLET DELAYED RELEASE 1 by mouth every day ASPIRIN 07779255128 Active Selena NUNEZP Active ATORVASTATIN CALCIUM 40 MG ORAL TABLET 1 tablet by mouth at bedtime ATORVASTATIN CALCIUM 54363533407 Active Selena NUNEZP Active CARVEDILOL 6.25 MG ORAL TABLET 1 tablet By Mouth Twice a Day CARVEDILOL 06957568984 Active Katerina Landry [facility] Active CINNAMON 500 MG ORAL CAPSULE 2 tablets by mouth twice daily CINNAMON 95569976094 Active Selena NUNEZP Active [facility] MELATONIN 10 MG ORAL CAPSULE 3 tablets by mouth at bedtime MELATONIN 89229670888 Active Selena NUNEZP Active HUMULIN R 100 UNIT/ML INJECTION SOLUTION 3 units SC as needed INSULIN REGULAR HUMAN 81597282757 Active Selena NUNEZP Active JANUMET 50-1000 MG ORAL TABLET 1 tablet by mouth twice daily SITAGLIPTIN- METFORMIN HCL 80821941764 Active Asha Villa MD Active LOSARTAN POTASSIUM 25 MG ORAL TABLET 1 tablet by mouth daily LOSARTAN POTASSIUM 33833290491 Active Asha Villa MD Active NITROSTAT 0.4 MG SUBLINGUAL TABLET SUBLINGUAL 1 SL every 5 min as needed for chest pain, max 3 doses per episode NITROGLYCERIN 06629023325 Active Selena MALDONADO Active PRASUGREL HCL 10 MG ORAL TABLET 1 tablet by mouth daily PRASUGREL HCL 55298009108 Active Selena NUNEZP Active RANEXA 1000 MG ORAL TABLET EXTENDED RELEASE 12 HOUR 1 tablet by mouth twice daily RANOLAZINE 82839601962 Active Selena NUNEZP Active SERTRALINE HCL 50 MG ORAL TABLET 1/2 tablet by mouth at bedtime daily SERTRALINE HCL 02223516510 Active Selena MALDONADO Active VITAMIN D (ERGOCALCIFEROL) 72385 UNIT ORAL CAPSULE One capsule by mouth once per week for 12 weeks VITAMIN D (ERGOCALCIFEROL) 26874 UNIT ORAL CAPSULE 0245747 ERGOCALCIFEROL Inactive VITAMIN D (ERGOCALCIFEROL) 96750 UNIT ORAL CAPSULE One capsule by mouth once per week for 12 weeks ERGOCALCIFEROL 24658141039 No Longer Active Selena MALDONADO Active Vital Signs Date Name Value Unit Range Description blood pressure, diastolic 81 mm[Hg] BP aguiar blood pressure, systolic 133 mm[Hg] BP sys height E&M 63.50 [in_us] Bdy height pulse rate E&M 60 /min Heart rate respiratory rate E&M 19 /min Resp rate temperature E&M 98.1 [degF] Body temperature weight E&M 193 [lb_av] Weight Measured blood pressure, diastolic 82 mm[Hg] BP aguiar blood pressure, systolic 155 mm[Hg] BP sys height E&M 63.50 [in_us] Bdy height pulse rate E&M 77 /min Heart rate respiratory rate E&M 18 /min Resp rate temperature E&M 98.5 [degF] Body temperature weight E&M 186 [lb_av] Weight Measured blood pressure, diastolic 93 mm[Hg] BP aguiar blood pressure, systolic 156 mm[Hg] BP sys height E&M 63.50 [in_us] Bdy height pulse rate E&M 58 /min Heart rate respiratory rate E&M 21 /min Resp rate temperature E&M 98.5 [degF] Body temperature weight E&M 181.80 [lb_av] Weight Measured Diagnostic Results Date Name Value Unit Range Description Office Visit: Acute Visit uti/htn/diabetes rm 6 [employer]e - Urinalysis pH, urine, semiquantitative 5.0 Lab Report: CBC With Differential/Platelet, Comp. Metabolic Panel (14), ... - Hematology lymphocyte count, blood, automated 1.5 X10E3/UL 10*3/mm3 0.7-3.1 Lab Report: CBC With Differential/Platelet, Comp. Metabolic Panel (14), ... - Chemistry urea nitrogen, blood 11 mg/dL 8-27 Office Visit: Acute Visit Dr. Villa - Urinalysis bilirubin, urine negative Lab Report: CBC With Differential/Platelet, Comp. Metabolic Panel (14), ... - Chemistry creatinine, serum 0.86 mg/dL 0.76-1.27 chloride, serum [...] Estimated Glomerular Filtration Rate (calc) 87 mL/min/1.73m2 >59 Lab Report: CBC With Differential/Platelet, Comp. Metabolic Panel (14), ... - Hematology platelet count 262 X10E3/UL 10*3/mm3 150-379 Office Visit: Acute Visit Dr. Villa - Urinalysis appearance, urine clear Lab Report: CBC With Differential/Platelet, Comp. Metabolic Panel (14), ... - Hematology red blood cell distribution width 14.2 % 12.3-15.4 Lab Report: CBC With Differential/Platelet, Comp. Metabolic Panel (14), ... - Chemistry protein, total, serum 7.1 g/dL 6.0-8.5 HDL cholesterol, serum 37 mg/dL >39 Lab Report: CBC With Differential/Platelet, Comp. Metabolic Panel (14), ... - Hematology eosinophils as percent of blood leukocytes 1 % Not Estab. Office Visit: Acute Visit Dr. Villa - Urinalysis glucose, urine, semiquantitative 1+ Lab Report: CBC With Differential/Platelet, Comp. Metabolic Panel (14), ... - Chemistry albumin/globulin ratio, serum 2.0 1.2-2.2 Absolute Neutrophils 3.9 X10E3/UL 10*3/uL 1.4-7.0 Lab Report: CBC With Differential/Platelet, Comp. Metabolic Panel (14), ... - Hematology basophil count, absolute 0.0 x10E3/uL 0.0-0.2 Lab Report: CBC With Differential/Platelet, Comp. Metabolic Panel (14), ... - Chemistry alanine aminotransferase (SGPT), serum 16 U/L 0-44 LDL cholesterol, serum 74 mg/dL 0-99 Lab Report: CBC With Differential/Platelet, Comp. Metabolic Panel (14), ... - Hematology monocytes as percent of blood leukocytes 8 % Not Estab. Office Visit: Acute Visit Dr. Villa - Urinalysis nitrite, urine, semiquantitative negative Lab Report: Albumin/Creatinine Ratio,Urine, Chlamydia/GC Amplification, ... - Urinalysis urine culture LESS Lab Report: CBC With Differential/Platelet, Comp. Metabolic Panel (14), ... - Chemistry cholesterol, serum 136 mg/dL 100-199 Lab Report: CBC With Differential/Platelet, Comp. Metabolic Panel (14), ... - Hematology mean corpuscular hemoglobin concentration, RBC 34.0 G/DL % 31.5-35.7 Office Visit: Acute Visit Dr. Villa - Urinalysis leukocyte esterase, urine, by dipstick negative Lab Report: CBC With Differential/Platelet, Comp. Metabolic Panel (14), ... - Hematology hemoglobin, blood 14.3 g/dL 13.0-17.7 leukocyte count, blood 6.0 X10E3/UL 10*3/mm3 3.4-10.8 Office Visit: Acute Visit Dr. Villa - Urinalysis protein, urine, semiquantitative (dipstick) 1+ Lab Report: CBC With Differential/Platelet, Comp. Metabolic Panel (14), ... - Hematology hematocrit, blood 42.1 % 37.5-51.0 Lab Report: CBC With Differential/Platelet, Comp. Metabolic Panel (14), ... - Chemistry prostate specific antigen 2.6 ng/mL 0.0-4.0 globulin, serum 2.4 1.5-4.5 albumin, serum 4.7 g/dL 3.5-4.8 Internal Correspondence: Pre-Visit Planning - Other List of providers caring for patient Baltazar Raymundo Lab Report: CBC With Differential/Platelet, Comp. Metabolic Panel (14), ... - Chemistry very low density lipoproteins 25 mg/dL 5-40 Office Visit: Acute Visit Dr. Villa - Urinalysis urobilinogen, urine, semiquantitative (dipstick) 1 Lab Report: CBC With Differential/Platelet, Comp. Metabolic Panel (14), ... - Hematology basophils as percent of blood leukocytes 0 % Not Estab. Lab Report: CBC With Differential/Platelet, Comp. Metabolic Panel (14), ... - Chemistry calcium, serum 9.6 mg/dL 8.6-10.2 Lab Report: Albumin/Creatinine Ratio,Urine, Chlamydia/GC Amplification, ... - Urinalysis microalbumin/total urine volume 3.1 mg/L Not Estab. Lab Report: CBC With Differential/Platelet, Comp. Metabolic Panel (14), ... - Hematology monocyte count, blood, automated 0.5 X10E3/UL 10*3/uL 0.1-0.9 Lab Report: CBC With Differential/Platelet, Comp. Metabolic Panel (14), ... - Chemistry urea nitrogen/creatinine ratio, serum 13 10-24 immature granulocytes, percentage of total cells, blood 0 % Not Estab. Lab Report: CBC With [...] ... - Chemistry sodium, serum 141 mmol/L 961-668 5916/05/10 hemoglobin A1C, blood, as % of total hemoglobin 6.9 % 4.8-5.6 alkaline phosphatase, serum 76 U/L 39-117 Office Visit: Acute Visit Dr. Villa - Urinalysis ketones, urine, by test strip trace (5) Lab Report: CBC With Differential/Platelet, Comp. Metabolic Panel (14), ... - Hematology Eosinophil Absolute Count 0.1 X10E3/UL 10*3/uL 0.0-0.4 Office Visit: Acute Visit uti/htn/diabetes rm 6 [employer] Jaye - Urinalysis specific gravity, urine 1.015 Lab Report: CBC With Differential/Platelet, Comp. Metabolic Panel (14), ... - Hematology mean corpuscular hemoglobin, RBC 31.4 pg 26.6-33.0 Lab Report: Albumin/Creatinine Ratio,Urine, Chlamydia/GC Amplification, ... - Chemistry creatinine, random, urine 75.0 mg/dL Not Estab. Lab Report: CBC With Differential/Platelet, Comp. Metabolic Panel (14), ... - Chemistry bilirubin, serum, total 1.0 mg/dL 0.0-1.2 Lab Report: CBC With Differential/Platelet, Comp. Metabolic Panel (14), ... - Hematology neutrophils as percent of blood leukocytes 66 % Not Estab. Office Visit: Acute Visit Dr. Villa - Urinalysis blood in urine (hemoglobin) by dipstick negative Lab Report: CBC With Differential/Platelet, Comp. Metabolic Panel (14), ... - Chemistry potassium, serum 4.5 mmol/L 3.5-5.2 Office Visit: Acute Visit 10 (Croatian) - Chemistry blood glucose, random 134 mg/dL Lab Report: CBC With Differential/Platelet, Comp. Metabolic Panel (14), ... - Chemistry aspartate aminotransferase (SGOT), serum 12 U/L 0-40 Office Visit: Acute Visit Dr. Villa - Urinalysis urine color yellow Encounters Date Encounter Provider Code Facility 16:47:59 CDT Est Patient Problem Focus - 09105 Asha Villa MD CPT-22689 [facility] 14:08:09 CDT Est Patient Exp Problem - 93524 Asha Villa MD CPT-78274 [facility] 14:47:51 CDT New Patient Detailed - 97036 Selena Cee [facility] CPT-76329 [facility] Procedures Code Procedure Name Date Entry Date Standard Description CPT-09936 Urinalysis - Dip only - In House 14:47:54 CDT
[2018-05-25 12:34] VITALS: BP 184/85
== END 2018-05-25 12:27 | disposition left against medical advice (07) ==
LOC: ER 10:57 → MERGE 10:57 → ER 12:27
DX: R07.89 Other chest pain (principal); R00.2 Palpitations; I49.8 Other specified cardiac arrhythmias; I49.1 Atrial premature depolarization
CPT/HCPCS: 99283